=== PATIENT | female | born 1955 | race Caucasian/White ===

== ENCOUNTER → 2016-08-30 | Outpatient (REF) | payer OTHER | LOC: M LAB REF 16:15 | PROVIDERS: ATTEND Internal Medicine | DX: Z11.3 Encounter for screening for infections with a predominantly sexual mode of transmission (principal) ==

== ENCOUNTER 2018-06-05 18:08 | Emergency (ER) | payer OTHER ==
[2018-06-05] MEDS: GABAPENTIN 300 MG CAP PO (18:41)
== END 2018-06-05 18:51 | disposition home or self-care (01) ==
LOC: M ED 18:08
DX: B37.0 Candidal stomatitis (principal); B02.29 Other postherpetic nervous system involvement; B02.8 Zoster with other complications; F17.200 Nicotine dependence, unspecified, uncomplicated; Z88.0 Allergy status to penicillin; Z79.899 Other long term (current) drug therapy
CPT/HCPCS: 99282

== ENCOUNTER → 2019-08-23 | Outpatient (CLI) | payer OTHER ==
[~2019-08-23] MED LIST: GABA-843 PO; MAGICMW SSP; NYST50SS PO; PAXI10TA12 PO; VALA1TAB5 PO
--- NOTE | 2019-08-23 16:48 | REP ---
Clinical: Lung screening. History smoking. Comparison: None Technique: Axial low-dose noncontrast images from the thoracic inlet to the upper abdomen using lung screening technique. Findings: The lung arias are well-aerated. No consolidation, significant nodule or mass lesion is appreciated. No pleural effusion/reaction or pneumothorax. Tracheobronchial tree is patent. Mediastinum demonstrates mild atherosclerotic changes of the coronary arteries without cardiomegaly. Impression: Lung-RADS category I. No nodule or suspicious abnormality. Management recommendations include annual low-dose CT surveillance. Electronically Signed by Ben Mott MD 08/23/2019 04:39 P
== END ==
LOC: M RAD 16:25
PROVIDERS: ATTEND Internal Medicine
DX: Z12.2 Encounter for screening for malignant neoplasm of respiratory organs (principal); Z87.891 Personal history of nicotine dependence

== ENCOUNTER → 2019-12-10 | Outpatient (CLI) | payer OTHER ==
[~2019-12-10] MED LIST changes: +ATIV2TAB PO; +OMEP40CA97 PO; +PANT40TA3 PO
== END ==
LOC: M LABSMTC 12:15
PROVIDERS: ATTEND Internal Medicine Gastroenterology
DX: Z01.818 Encounter for other preprocedural examination (principal); Z11.59 Encounter for screening for other viral diseases

== ENCOUNTER 2019-12-13 08:21 | Day surgery (SDC) | payer OTHER ==
[~2019-12-13] VITALS: Ht 160 cm; Wt 62.6 kg
[~2019-12-13 08:21] MED LIST changes: +NS 1,000 ML IV SCH
[2019-12-13] MEDS ORDERED: LIDOCAINE 2% 100MG/5ML SDV (FOR ANES.) As Ordered ONE (08:50)
[2019-12-13] MEDS ORDERED: propofoL 200 MG/20 ML VIAL As Ordered ONE (08:52)
[2019-12-13] MEDS ORDERED: fentaNYL 100 MCG/2 ML INJECTION (J3010) As Ordered ONE (08:53)
--- NOTE | 2019-12-13 09:36 | ROOR ---
Patient Name: Caity Awad Procedure Date: 12/13/2019 9:13 AM Date of : 1955 Age: 64 Room: [facility] Gender: Female Note Status: Finalized Procedure: Upper Endoscopy + Biopsies + Balloon Dilatation Indications: Dysphagia, Heartburn, Exclusion of Macedo's esophagus Providers: John Canela MD Referring MD: Avelina Carrillo DO Requesting Provider: Medicines: Monitored Anesthesia Care Complications: No immediate complications. Procedure: Pre-Anesthesia Assessment: - The heart rate, respiratory rate, oxygen saturations, blood pressure, adequacy of pulmonary ventilation, and response to care were monitored throughout the procedure. The Endoscope was introduced through the mouth, and advanced to the second part of duodenum. The upper GI endoscopy was accomplished without difficulty. The patient tolerated the procedure well. Findings: The Z-line was irregular and was found 35 cm from the incisors. Multiple biopsies were obtained with cold forceps for evaluation to rule out Macedo's Esophagus randomly at the gastroesophageal junction. A TTS dilator was passed through the scope. Dilation with a 15-16.5-18 mm balloon dilator was performed to 18 mm at the gastroesophageal junction. Localized mild inflammation characterized by congestion (edema), erosions and erythema was found in the gastric antrum. Biopsies were taken with a cold forceps for Helicobacter pylori testing. The exam of the duodenum was otherwise normal. Impression: - Z-line irregular, 35 cm from the incisors. - Mucosal changes suspicious for gastritis. Biopsied. - Multiple biopsies were obtained at the gastroesophageal junction. - Dilation performed at the gastroesophageal junction. - The examination was otherwise normal. Recommendation: - Patient has a contact number available for emergencies. The signs and symptoms of potential delayed complications were discussed with the patient. Return to normal activities tomorrow. Written discharge instructions were provided to the patient. - Resume previous diet. - Discharge patient to home. - Continue present medications. - Await pathology results. - Telephone GI clinic for pathology results in 1 week. - Return to referring physician. - The findings and recommendations were discussed with the patient's family. John Canela MD John Canela MD 12/13/2019 9:35:22 AM Electronically signed by John Canela MD Number of Addenda: 0 Note Initiated On: 12/13/2019 9:13 AM Estimated Blood Loss: Estimated blood loss: none.
--- NOTE | 2019-12-13 09:54 | ROOR ---
Patient Name: Caity Awad Procedure Date: 12/13/2019 9:14 AM Date of : 1955 Age: 64 Room: [facility] Gender: Female Note Status: Finalized Procedure: Total Colonoscopy to Cecum Indications: Screening for colorectal malignant neoplasm Providers: John Canela MD Referring MD: Avelina Carrillo DO Requesting Provider: Medicines: Monitored Anesthesia Care Complications: No immediate complications. Procedure: Pre-Anesthesia Assessment: - The heart rate, respiratory rate, oxygen saturations, blood pressure, adequacy of pulmonary ventilation, and response to care were monitored throughout the procedure. The Colonoscope was introduced through the anus and advanced to the cecum, identified by appendiceal orifice and ileocecal valve. The colonoscopy was performed without difficulty. The patient tolerated the procedure well. The quality of the bowel preparation was excellent. Findings: The perianal and digital rectal examinations were normal. Non-bleeding internal hemorrhoids were found during retroflexion. The hemorrhoids were small and Grade I (internal hemorrhoids that do not prolapse). No other significant abnormalities were identified in a careful examination of the remainder of the colon. The exam was otherwise without abnormality on direct and retroflexion views. Impression: - Non-bleeding internal hemorrhoids. - The examination was otherwise normal on direct and retroflexion views. - No specimens collected. - The exam was otherwise normal to the cecum. Recommendation: - Patient has a contact number available for emergencies. The signs and symptoms of potential delayed complications were discussed with the patient. Return to normal activities tomorrow. Written discharge instructions were provided to the patient. - High fiber diet. - Discharge patient to home. - Continue present medications. - Repeat colonoscopy in 10 years for screening purposes. - Return to referring physician. - The findings and recommendations were discussed with the patient's family. John Canela MD John Canela MD 12/13/2019 9:53:40 AM Electronically signed by John Canela MD Number of Addenda: 0 Note Initiated On: 12/13/2019 9:14 AM Estimated Blood Loss: Estimated blood loss: none.
[2019-12-13 10:15] VITALS: BP 141/83
== END 2019-12-13 10:29 | disposition home or self-care (01) ==
LOC: M OPP 08:21
PROVIDERS: ATTEND Internal Medicine Gastroenterology
DX: Z12.11 Encounter for screening for malignant neoplasm of colon (principal); K64.0 First degree hemorrhoids; K22.8 Other specified diseases of esophagus; K31.89 Other diseases of stomach and duodenum; R13.10 Dysphagia, unspecified; R12 Heartburn; K22.10 Ulcer of esophagus without bleeding
CPT/HCPCS: 43249; 45378; 88305; J3010

== ENCOUNTER → 2020-08-07 | Outpatient (REF) | payer BC ==
[~2020-08-07] MED LIST changes: +GABA-282 PO; -GABA-843 PO; -NS 1,000 ML IV SCH; +PANT40TA29 PO; -PANT40TA3 PO
== END ==
LOC: M LAB REF 11:23
PROVIDERS: ATTEND Internal Medicine
DX: R41.3 Other amnesia (principal)

== ENCOUNTER → 2022-03-01 | Outpatient (REF) | payer MEDICARE ==
[~2022-03-01] MED LIST changes: +OMEP40CA4 PO; -OMEP40CA97 PO
== END ==
LOC: M LAB REF 12:17
PROVIDERS: ATTEND Internal Medicine
DX: D51.9 Vitamin B12 deficiency anemia, unspecified (principal)

== ENCOUNTER → 2022-08-22 | Outpatient (CLI) | payer MEDICARE ==
[~2022-08-22] MED LIST changes: +NYST-38 PO; -NYST50SS PO; -PAXI10TA12 PO; +PAXI10TA13 PO
== END ==
LOC: M WUC 15:00
PROVIDERS: ATTEND Internal Medicine
DX: M54.16 Radiculopathy, lumbar region (principal); J20.9 Acute bronchitis, unspecified; R35.0 Frequency of micturition; R05.9 Cough, unspecified

== ENCOUNTER → 2022-09-28 | Outpatient (CLI) | payer MEDICARE | LOC: M RAD 13:59 | PROVIDERS: ATTEND Internal Medicine | DX: N95.0 Postmenopausal bleeding (principal) ==

== ENCOUNTER → 2023-10-31 | Outpatient (CLI) | payer MEDICARE | LOC: M WHC 14:06 | PROVIDERS: ATTEND Internal Medicine | DX: N64.4 Mastodynia (principal) | CPT/HCPCS: 77066; G0279 ==

== ENCOUNTER → 2024-01-11 | Outpatient (REF) | payer MEDICARE | LOC: M LAB REF 12:07 | PROVIDERS: ATTEND Internal Medicine | DX: D51.9 Vitamin B12 deficiency anemia, unspecified (principal) ==

== ENCOUNTER → 2024-07-15 | Outpatient (REF) | payer MEDICARE ==
[~2024-07-15] MED LIST changes: +GABA-1172 PO; -GABA-282 PO
[2024-07-16 14:05] LABS: % LABILE ALKALINE PHOSPHATASE 25.2 %
== END ==
LOC: M LAB REF 12:20
PROVIDERS: ATTEND Internal Medicine
DX: R74.8 Abnormal levels of other serum enzymes (principal)

== ENCOUNTER → 2024-08-30 | Outpatient (CLI) | payer MEDICARE | LOC: M RAD 07:14 | PROVIDERS: ATTEND Internal Medicine | DX: R74.01 Elevation of levels of liver transaminase levels (principal); N28.1 Cyst of kidney, acquired ==

== ENCOUNTER → 2025-02-26 | Outpatient (REF) | payer MEDICARE ==
[2025-02-26 14:55] LABS: PTH INTACT 113.8 PG/ML (18.5-88.0)
[2025-02-26 14:59] LABS: VITAMIN B12 LEVEL 349.0 PG/ML (211-911)
[2025-02-27 13:12] LABS: PROTEIN CREATININE RATIO 68 mg/g creat (24-184); T PROTEIN CREATININE RATIO 0.068 (0.024-0.184); UPEP CREATININE 236 mg/dL (20-275); UPEP TOTAL PROTEIN 16 mg/dL (5-24)
[2025-02-27 16:26] LABS: PROTEIN, TOTAL SO 7.5 g/dL (6.1-8.1)
[2025-02-27 19:44] LABS: IRON (FE) 54.0 UG/DL (50-170); PERCENT SATURATION 15.0 % (13.2-45.0)
[2025-02-28 07:23] LABS: UPEP ALBUMIN 37 %; URINE ALPHA 1 GLOBULIN 6 %; URINE ALPHA 2 GLOBULIN 18 %; URINE BETA GLOBULIN 16 %; URINE GAMMA GLOBULIN 24 %
[2025-03-03 07:18] LABS: ALBUMIN SO 4.6 g/dL (3.8-4.8); ALPHA 1 GLOBULINS SO 0.3 g/dL (0.2-0.3); ALPHA 2 GLOBULINS SO 0.6 g/dL (0.5-0.9); BETA 2 GLOBULIN SO 0.5 g/dL (0.2-0.5); BETA GLOBULIN SO 0.5 g/dL (0.4-0.6); GAMMA GLOBULINS SO 1.0 g/dL (0.8-1.7)
== END ==
LOC: M LAB REF 14:22
PROVIDERS: ATTEND Internal Medicine
DX: E83.52 Hypercalcemia (principal); D64.9 Anemia, unspecified

== ENCOUNTER → 2025-03-10 | Outpatient (REF) | payer MEDICARE | LOC: M LAB REF 17:07 | PROVIDERS: ATTEND Internal Medicine | DX: E83.52 Hypercalcemia (principal) ==